=== PATIENT | female | born 1930 | race Caucasian/White ===

== ENCOUNTER 2016-09-29 14:55 | Inpatient (IN) ==
[2016-09-29] MEDS: SODIUM CHLORIDE 0.9% 1,000 ML IV SCH ×2 (16:45→22:48)
[2016-09-29 17:18] LABS: Apearance,Urine CLEAR (Clear); Bilirubin,Urine Negative (Negative); Blood, Urine Negative (Negative); Glucose,Urine (UA) Negative (Negative); Ketones,Urine Negative (Negative); Nitrite,Urine Negative (Negative); Protein,Urine Negative; RBC,Urine <1 /HPF (0-4); Squamous Epithelial Cell,Urine Occasional /HPF (0-10); Urine Color Yellow (Yellow); Urine Specific Gravity 1.008 (1.001-1.035); Urine Urobilinogen < 2.0 EU/DL (0.2-1.0); WBC,Urine 1 /HPF (0-6)
--- NOTE | 2016-09-29 17:23 | Emergency Department Note ---
I, Chacha Guzman, am scribing for, and in the presence of, Gely Hernandez DO 16:56. IDavid Debra, DO, personally performed the services described in this documentation, ascribed by Chacha Guzman in my presence, and it is both accurate and complete 722 . Arrival - Arrival Chief Complaint: Urogenital - Female Stated Complaint: urinating non-stop ED Nursing Triage Note: Pt c/o ?UTI since last Thu with frequent urination and incontinence. Pt was admitted to [facility] last wk for same complaint. Mode of Arrival: Wheelchair Limitations: No Limitations Source: Patient, Family Time Seen by Provider: 09/29/16 16:24 - History of Present Illness HPI Narrative: Pt is a 86 y/o female who came to ED with c/o uncontrollable output that started Thursday. Pt has UTI and hemorrhoids currently. Pt was hospitalized in [place], [place], last week for no output but cathed with great amount of urine expelled. Son reports since then pt has problems with incontinence, especially with standing up or walking. Pt c/o right flank pain and hemorrhoids, therefore lying on left side almost in position. Pt reports she is still drinking lots of fluid, especially gallons of water. Pt's PCP is Dr. Tasha Henry in [place], [place]. Onset (ago): day(s) Consistency: constant Severity: moderate Severity scale (1-10): 5 Quality: aching Allergies/Adverse Reactions: Allergies Allergy/AdvReac Type Severity Reaction Status Date / Time celecoxib [From Celebrex] Allergy Unknown/Unable Verified 03/21/15 11:11 to obtain naproxen [From Aleve] Allergy Unknown/Unable Verified 03/21/15 11:11 to obtain Sulfa (Sulfonamide Allergy ITCHING Verified 03/21/15 11:11 Antibiotics) Home Medications: Home Medications Medication Instructions Recorded Confirmed Type Diltiazem Cd Cap [Cardizem CD] 120 mg PO DAILY 01/27/15 09/29/16 History Lisinopril 20 mg PO DAILY 01/27/15 09/29/16 History Warfarin Sodium 5 mg PO DAILY 01/27/15 09/29/16 History glipiZIDE [Glipizide] 1 tablet PO DAILY 01/27/15 09/29/16 History metFORMIN [Glucophage] 750 tablet PO DAILY 01/27/15 09/29/16 History Allopurinol 100 mg PO BID 09/29/16 09/29/16 History Nitrofurantoin Monohyd/M-Cryst 100 mg PO BID 09/29/16 09/29/16 History [Nitrofurantoin [place]-Mcr 100 mg] hydrOXYzine HCL TAB [Atarax Tab] 25 mg PO BEDTIME 09/29/16 09/29/16 History Review of System - Review of System 12 point system: reviewed and no additional remarkable complaints except as stated - Review of System Constitutional: Absent: fever, weakness Respiratory: Absent: respiratory distress Cardiovascular: Absent: chest pain Gastrointestinal: Absent: abdominal pain, nausea, vomiting, diarrhea Genitourinary female: Present: other (painful hemorrhoids). Absent: dysuria Musculoskeletal: Present: lower back pain (right lower flank pain). Absent: arm pain, leg pain, neck pain Skin: Absent: rash Neurological: Absent: headache, numbness, confusion Medical,Surgical,& Family Hx - Medical History Cardio: History of: Cardiac Dysrhythmia (A. fib), CAD, Hypertension Neurology: History of: Cerebrovascular Accident (x 2 (most recent in 2009)), Vertigo Endocrine: History of: Diabetes Mellitus (NIDDM) Rheumatology: History of;: Gout, Rheumatoid Arthritis Musculoskeletal: History of: Amputation (multiple toes, bilateral feet) - Surgical History Abdominal Surgeries: Surgical HX of: Appendectomy Reproductive Surgeries: Surgical HX of;: Hysterectomy Orthopedic Surgeries: Surgical HX of;: Orthopedic Surgery (multiple toe amputations on bilateral feet s/t diabetes) - Family History Family History: noncontributory - Social History Smoking Status: Never smoker Functional capacity: independent ambulation Exam Vital Signs: Vital Signs Temperature 97.7 F 09/29/16 16:12 Pulse Rate 72 09/29/16 16:12 Respiratory Rate 16 09/29/16 16:12 Blood Pressure 141/68 09/29/16 16:12 O2 Sat by Pulse Oximetry 98 09/29/16 14:56 - General General appearance: alert, in distress (mild) - Head Head exam: Present: atraumatic, normocephalic - Eye Eye exam: Present: PERRL, EOMI - ENT ENT exam: Present: mucous membranes moist. Absent: mucous membranes dry - Neck Neck exam: Present: full ROM. Absent: tenderness - Chest Chest inspection: Present: symmetric chest wall rise. Absent: tenderness - Respiratory Respiratory exam: Present: normal lung sounds bilaterally. Absent: respiratory distress - Cardiovascular Cardiovascular exam: Present: regular rate, normal rhythm, normal heart sounds - Abdominal Exam Abdominal exam: Present: soft, normal bowel sounds. Absent: tenderness - Rectal Exam Rectal exam: Present: deferred (due to pain) - Extremities Exam Extremities exam: Present: full ROM. Absent: tenderness, pedal edema - Back Exam Back exam: Present: full ROM, tenderness (mild right lower flank tenderness) - Neurological Exam Neurological exam: Present: alert, oriented X3, CN II-XII intact - Psychiatric Psychiatric exam: Present: normal affect, normal mood - Skin Skin exam: Present: warm, dry Course Course Narrative: pt to be admitted to Hospitalist service. Results - Labs CBC & BMP: 09/29/16 17:03 09/29/16 17:03 Lab Results: I have reviewed the patients labs Labs: Laboratory Tests 09/29/16 17:03 Urine Appearance Clear Urine pH 5.0 Ur Specific [place] 1.008 Urine Blood Negative Urine Urobilinogen < 2.0 H Urine Leukocytes Negative Urine RBC <1 Urine WBC 1 Ur Squamous Epith Cells Occasional Laboratory Tests 09/29/16 17:03 RBC 3.77 L Hgb 10.9 L Hct 34.0 L Laboratory Tests 09/29/16 17:03 Sodium 137 Potassium 5.1 Chloride 104 Carbon Dioxide 27 Anion Gap 11.1 BUN 15 Creatinine 1.10 H GFR Calculation 44 BUN/Creatinine Ratio 13.00 Glucose 104 Calculated Osmolality 273.8 Calcium 10.2 H Total Bilirubin < 0.39 AST 17 ALT 19 Alkaline Phosphatase 109 Total Protein 8.0 Albumin 3.7 Globulin 4.3 H Albumin/Globulin Ratio 0.8 L - Diagnostic Findings Procedure: CT Abdomen and Pelvis: report reviewed by me (urinary bladder distention. no acute abd path) Disposition Clinical Impression: Urinary incontinence Case discussed with: patient, patient's family Disposition: Still a Patient Condition: Stable Time of Disposition: 19:59
[2016-09-29 18:08] LABS: Basophils % 0.4 % (0.0-0.8); Eosinophils # 0.3 10*3/uL (0.0-0.87); Eosinophils % 3.6 % (0.00-10.9); Hemoglobin 10.9 GM/DL (12.0-16.0); Immature Granulocytes % 0.2 %; Immature Granulocytes Absolute 0.02 #; Lymphocytes # 2.2 10*3/uL (1.4-4.0); Lymphocytes % 27.7 % (21.3-54.2); Mean Corpuscular HGB Conc 32.1 GM/DL (32-36); Mean Corpuscular Hemoglobin 29 PG (27-34); Mean Corpuscular Volume 90.2 FL (87-102); Mean Platelet Volume 11.6 FL (9.6-12.0); Monocytes # 0.6 10*3/uL (0.11-0.8); Neutrophils # 4.8 10*3/uL (1.4-7.4); Neutrophils % 60.1 % (38.7-73.9); Platelet Count 277 T/CUMM (130-400); Red Blood Count 3.77 MC/CUMM (3.8-5.5); Red Cell Distribution Width 15.6 % (9.3-17.3)
[2016-09-29] MEDS ORDERED: ONDANSETRON 4 MG/2 ML VIAL IV STA (18:12)
[2016-09-29] MEDS ORDERED: HYDROmorphone 2 MG/1 ML VIAL IV STA (18:12)
[2016-09-29 18:23] LABS: Alanine Aminotransferase 19 U/L (13-56); Albumin 3.7 G/DL (3.4-5.0); Alkaline Phosphatase 109 U/L (45-117); Aspartate Amino Transferase 17 U/L (0-37); Bilirubin,Total < 0.39 MG/DL (0.2-1.0); Blood Urea Nitrogen 15 MG/DL (7-18); Calcium 10.2 MG/DL (8.5-10.1); Glucose 104 MG/DL (74-106); Osmolality,Calculated 273.8 MOS/KG (273-304); Potassium 5.1 MMOL/L (3.5-5.1); Sodium 137 MMOL/L (136-145)
[2016-09-29] MEDS ORDERED: HYDROmorphone 2 MG/1 ML VIAL ONE (18:27)
[2016-09-29] MEDS ORDERED: ONDANSETRON 4 MG/2 ML VIAL ONE (18:27)
--- NOTE | 2016-09-29 19:38 | Hospitalist History & Physical ---
Assessment and Plan (1) History of CVA (cerebrovascular accident) Status: Acute Assessment and plan: The patient is admitted to the hospital with generalized and increasing weakness and gait disturbance. Will have neurology and urology evaluations. Will recheck MRI scan in the morning. We will ask the urologist to evaluate her incontinence. We will request occupational and physical therapy consultations. Current Visit: No (2) Chronic atrial fibrillation Status: Chronic Current Visit: No (3) Hypertension Status: Chronic Current Visit: No History of Present Illness Chief complaint: Weakness and incontinence History of present illness: Ms. Soto is a 86 year old female patient with history of dementia who lives at home with her son. The patient has had increasing weakness and unstable gait. She has had incontinence. The patient was hospitalized at [facility] for urinary tract infection 2 weeks ago. The patient's symptoms have returned. Laboratory does not show any pyuria. The patient denies shortness of breath or chest discomfort. She does not complain of palpitations. Symptoms are moderate, continuous, and worsening. The patient is now admitted hospital for further diagnostic testing. I discussed CODE STATUS with the patient and she wishes to be full code at this time. Home Medications Medication Instructions Recorded Confirmed Type Diltiazem Cd Cap [Cardizem CD] 120 mg PO DAILY 01/27/15 09/29/16 History Lisinopril 20 mg PO DAILY 01/27/15 09/29/16 History Warfarin Sodium 5 mg PO DAILY 01/27/15 09/29/16 History glipiZIDE [Glipizide] 1 tablet PO DAILY 01/27/15 09/29/16 History metFORMIN [Glucophage] 750 tablet PO DAILY 01/27/15 09/29/16 History Allopurinol 100 mg PO BID 09/29/16 09/29/16 History Nitrofurantoin Monohyd/M-Cryst 100 mg PO BID 09/29/16 09/29/16 History [Nitrofurantoin [place]-Mcr 100 mg] hydrOXYzine HCL TAB [Atarax Tab] 25 mg PO BEDTIME 09/29/16 09/29/16 History Allergies Allergy/AdvReac Type Severity Reaction Status Date / Time celecoxib [From Celebrex] Allergy Unknown/Unable Verified 03/21/15 11:11 to obtain naproxen [From Aleve] Allergy Unknown/Unable Verified 03/21/15 11:11 to obtain Sulfa (Sulfonamide Allergy ITCHING Verified 03/21/15 11:11 Antibiotics) Medical,Surgical,& Family Hx - Medical History Cardio: History of: Cardiac Dysrhythmia (A. fib), CAD, Hypertension Neurology: History of: Cerebrovascular Accident (x 2 (most recent in 2009)), Vertigo Endocrine: History of: Diabetes Mellitus (NIDDM) Rheumatology: History of;: Gout, Rheumatoid Arthritis Musculoskeletal: History of: Amputation (multiple toes, bilateral feet) - Surgical History Abdominal Surgeries: Surgical HX of: Appendectomy Reproductive Surgeries: Surgical HX of;: Hysterectomy Orthopedic Surgeries: Surgical HX of;: Orthopedic Surgery (multiple toe amputations on bilateral feet s/t diabetes) - Family History Family History: Reports;: Family Hypertension - Social History Smoking Status: Never smoker Time spent discussing smoking cessation with patient: 3 to 10 minutes (4 minutes ) Type of Drug Use: None Marital Status: Lives With:: Children Functional capacity: bed bound 12 point system: reviewed and no additional remarkable complaints except as stated Exam - Constitutional Vitals: Period Temp Pulse Resp BP Sys/Alamo Pulse Ox Last 24 Hr 97.7 F-97.7 F 72-72 16-16 141-141/68-68 98 Exam: Constitutional System: Mild distress. No tremulousness. Frail elderly lady. Anxious affect Head: Normocephalic, atraumatic. Ears, Nose and Throat System: No evidence of Otitis or Mastoiditis. No epistaxis or discharge Eyes System: Pupils equal, round, and reactive. Extraocular muscles intact. Neck: Supple, without adenopathy, No jugular venous distention. No thyromegaly , neck mass, or prior surgery apparent. Respiratory System: Chest clear to auscultation. Cardiovascular System: Heart with regular rate and rhythm. No murmur. GI System: Abdomen soft, mildly and diffusely tender. Normo active bowel sounds present. Musculoskeletal System: limbs with no pedal edema. Full distal pulses. Neurological System: No discernable sensory deficit. No aphasia Psychiatric System: Conversation is consistent with short-term memory loss Results - Labs CBC & BMP: 09/29/16 17:03 09/29/16 17:03 Lab Results: I have reviewed the past 24 hour labs
--- NOTE | 2016-09-29 19:38 | CT Report ---
Referring physician: Gely Hernandez DO EXAM: CT abdomen and pelvis without contrast DATE: 09/29/2016 COMPARISON: None REASON: Generalized abdominal pain TECHNIQUE: Axial images of the abdomen and pelvis were obtained without the use of contrast. Coronal and sagittal reformatted images were also provided. Total DLP is 448.90 mGy*cm. FINDINGS: Chronic scarring/atelectasis/minimal infiltration at the lung bases especially in the left lower lobe. Cardiomegaly with coronary artery calcifications. The liver and spleen are normal in size and contain multiple calcified granulomata. No dilated ducts or calcified gallstones. The pancreas and adrenal glands have an unremarkable appearance. Cortical scarring in the kidneys with minimal bilateral hydronephrosis. The distal ureters are less dilated with no definite renal or ureteral calculi. However there are multiple phleboliths adjacent to the nondilated distal ureters. The urinary bladder is distended to the level of L4. Calcification in the wall of the nondilated abdominal aorta with no adjacent adenopathy. Small hiatal hernia with no dilatation of the small bowel. Diverticulosis of the colon with increased fecal material. No evidence of diverticulitis, free air, or free fluid. Suboptimal demonstration of the appendix. Prior hysterectomy with evidence of pelvic relaxation. 3.6 mm anterolisthesis of L4 relationship to L5. Degenerative changes with chronic appearing Schmorl's nodes and osteopenia. IMPRESSION: Significant distention of the urinary bladder to the level of L4. There is associated minimal hydronephrosis which may be related this finding. It is difficult to exclude an element of UPJ obstruction, etc. Cortical scarring in the kidneys. No obvious renal or ureteral calculi are identified. Small hiatal hernia with diverticulosis of the colon and increased fecal material. Limited evaluation of the appendix on these noncontrast scans. Prior hysterectomy. Evidence of old healed granulomatous disease with arterial calcifications and minimal atelectasis/infiltration in the left lower lobe. Cardiomegaly with coronary artery calcifications. Grade 1 spondylolisthesis at L4-L5 with degenerative changes and osteopenia. The CT exam was performed using one or more of the following dose reduction techniques: Automated exposure control and adjustment of the mA and/or kV according to patient size. PROCEDURE INTERPRETED AT [facility] DEPARTMENT OF RADIOLOGY Final Report Signed by: Dr. Ana Aguilar
[2016-09-29] MEDS ORDERED: GLUCAGON 1 MG VIAL IM PRN (20:50)
[2016-09-29] MEDS ORDERED: ONDANSETRON 4 MG/2 ML VIAL IV PRN (20:50)
[2016-09-29] MEDS ORDERED: DEXTROSE 50% 25 GM/50 ML VIAL IV PRN (20:50)
[2016-09-29 22:00] LABS: INR 3.4
[2016-09-29 22:03] LABS: PT Patient Result 39.3 SECS
[2016-09-29] MEDS: hydrOXYzine HCL 25 MG TABLET PO SCH (22:48)
[2016-09-29] MEDS: ALLOPURINOL 100 MG TABLET PO SCH (22:48)
[2016-09-29] MEDS: NITROFURANTOIN MACRO/MONO 100 MG CAPSULE PO SCH (22:48)
[2016-09-30] MEDS: ACETAMINOPHEN 325 MG TABLET PO PRN ×3 (03:06→20:31)
[2016-09-30 05:20] LABS: Basophils % 0.4 % (0.0-0.8); Eosinophils # 0.3 10*3/uL (0.0-0.87); Eosinophils % 3.8 % (0.00-10.9); Hematocrit 30.3 VOL% (35.7-47.0); Hemoglobin 9.6 GM/DL (12.0-16.0); Immature Granulocytes % 0.3 %; Immature Granulocytes Absolute 0.02 #; Lymphocytes # 1.2 10*3/uL (1.4-4.0); Lymphocytes % 18.2 % (21.3-54.2); Mean Corpuscular HGB Conc 31.7 GM/DL (32-36); Mean Corpuscular Hemoglobin 29 PG (27-34); Mean Corpuscular Volume 89.9 FL (87-102); Mean Platelet Volume 10.9 FL (9.6-12.0); Monocytes # 0.6 10*3/uL (0.11-0.8); Monocytes % 8.7 % (1.7-12.7); Neutrophils # 4.7 10*3/uL (1.4-7.4); Neutrophils % 68.6 % (38.7-73.9); Platelet Count 262 T/CUMM (130-400); Red Blood Count 3.37 MC/CUMM (3.8-5.5); Red Cell Distribution Width 15.6 % (9.3-17.3); White Blood Count 6.8 T/CUMM (4-12)
[2016-09-30 06:01] LABS: Calcium 9.6 MG/DL (8.5-10.1); Magnesium 1.9 MG/DL (1.8-2.4); Osmolality,Calculated 281.3 MOS/KG (273-304); Potassium 5.3 MMOL/L (3.5-5.1)
[2016-09-30 06:02] LABS: Troponin I Only 0.074 NG/ML (0.00-0.045)
--- NOTE | 2016-09-30 07:47 | Urology Consultation ---
History of Present Illness - Data of Consult Consult date: 09/30/16 - Consult Narrative History of present illness: Ms. Soto is a 86 year old female This 86-year-old white female diabetic is seen in consultation because a history of urinary incontinence. The patient is a poor historian but apparently she was hospitalized in [place] recently with a history of not being able to void and having a large output. Her primary complaint now is incontinence when she stands up but she feels no urge to void. She denies any past history of any serious urological problems and her evaluation thus far includes a finding of a normal urinalysis normal renal function and a CT scan shows bladder distention with mild hydronephrosis probably secondary to bladder outlet obstruction. She denies any urological symptoms with the lower extremity. I think that she has a neurogenic bladder with distention and no urge to void with overflow incontinence on the recommended we start intermittent catheterization CC: Beronica Villafuerte MD - Home Medications and Allergies Home Medications: Home Medications Medication Instructions Recorded Confirmed Type Diltiazem Cd Cap [Cardizem CD] 120 mg PO DAILY 01/27/15 09/29/16 History Lisinopril 20 mg PO DAILY 01/27/15 09/29/16 History Warfarin Sodium 5 mg PO DAILY 01/27/15 09/29/16 History glipiZIDE [Glipizide] 1 tablet PO DAILY 01/27/15 09/29/16 History metFORMIN [Glucophage] 750 tablet PO DAILY 01/27/15 09/29/16 History Allopurinol 100 mg PO BID 09/29/16 09/29/16 History Nitrofurantoin Monohyd/M-Cryst 100 mg PO BID 09/29/16 09/29/16 History [Nitrofurantoin [place]-Mcr 100 mg] hydrOXYzine HCL TAB [Atarax Tab] 25 mg PO BEDTIME 09/29/16 09/29/16 History Allergies/Adverse Reactions: Allergies Allergy/AdvReac Type Severity Reaction Status Date / Time celecoxib [From Celebrex] Allergy Unknown/Unable Verified 03/21/15 11:11 to obtain naproxen [From Aleve] Allergy Unknown/Unable Verified 03/21/15 11:11 to obtain Sulfa (Sulfonamide Allergy ITCHING Verified 03/21/15 11:11 Antibiotics) Exam - Constitutional Vitals: Period Temp Pulse Resp BP Sys/[place] Pulse Ox Last 24 Hr 97.7 F-98.4 F 70-91 16-20 135-141/56-93 95-98 Results - Labs CBC & BMP: 09/30/16 05:03 09/30/16 05:03
[2016-09-30] MEDS ORDERED: SODIUM PHOSPHATE ENEMA 133 ML BOTTLE RECTAL PRN (09:18)
[2016-09-30] MEDS ORDERED: LACTULOSE 20 GM/30 ML UDCUP PO PRN (09:18)
[2016-09-30] MEDS: glipiZIDE 10 MG TABLET PO SCH (09:36)
[2016-09-30] MEDS: DILTIAZEM CD 120 MG CAPSULE PO SCH (09:37)
[2016-09-30] MEDS: metFORMIN 500 MG TABLET PO SCH (09:37)
[2016-09-30] MEDS: ALLOPURINOL 100 MG TABLET PO SCH ×2 (09:38→20:31)
[2016-09-30] MEDS: NITROFURANTOIN MACRO/MONO 100 MG CAPSULE PO SCH ×2 (09:38→20:31)
[2016-09-30] MEDS: LISINOPRIL 20 MG TABLET PO SCH (09:39)
[2016-09-30] MEDS: SODIUM CHLORIDE 0.9% 1,000 ML IV SCH ×2 (09:39→20:03)
[2016-09-30] MEDS: PANTOPRAZOLE 40 MG TABLET PO SCH (09:39)
--- NOTE | 2016-09-30 10:15 | XRay Report ---
XR KUB Indication: Generalized abdominal pain Comparison: CT abdomen pelvis dated September 29, 2016 Technique: Frontal views of the abdomen Findings: Nonspecific nonobstructive bowel gas pattern. Granulomatous calcifications of the liver and spleen diffuse osteopenia. Mild S-shaped curvature of the spine with degenerative change. IMPRESSION: No acute abnormality demonstrated. PROCEDURE INTERPRETED AT [facility] DEPARTMENT OF RADIOLOGY Final Report Signed by: Dr David Hernandez
[2016-09-30] MEDS: POLYETHYLENE GLYCOL POWDER 17 GM PACK PO SCH (10:39)
--- NOTE | 2016-09-30 11:44 | Hospitalist Progress Note ---
Assessment and Plan (1) Chronic atrial fibrillation Status: Chronic Assessment and plan: Takes coumadin, holding due to elevated INR Current Visit: No (2) Type 2 diabetes mellitus Status: Acute Assessment and plan: Home meds have been discontinued Current Visit: No (3) Hypertension Status: Chronic Assessment and plan: Home meds Current Visit: No (4) History of CVA (cerebrovascular accident) Status: Acute Current Visit: No (5) Urinary incontinence Status: Acute Assessment and plan: Urology consulted Recommend in and out caths, believe is due to neurogenic bladder Current Visit: Yes (6) Constipation Status: Acute Current Visit: Yes (7) Supratherapeutic INR Status: Acute Current Visit: Yes (8) Gait disturbance Status: Acute Assessment and plan: Neurology consulted MRI ordered PT/OT Current Visit: Yes Hospitalist: Subjective Interval history: No acute events overnight. Patient reports that she has not had a bowel movement in a week. Denies abdominal pain today. Exam - Constitutional Vitals: Period Temp Pulse Resp BP Sys/[place] Pulse Ox Last 24 Hr 97.4 F-98.4 F 70-91 16-20 135-150/56-93 92-98 General appearance: normal weight - Head Head exam: Present: normocephalic, atraumatic - Eye Eye exam: Present: EOMI Pupils: Present: MEHRAN - ENT ENT exam: Present: normal exam - Neck Neck exam: Present: normal inspection - Respiratory Respiratory exam: Present: clear to auscultation bilaterally. Absent: rhonchi, wheezes - Cardiovascular Cardiovascular exam: Present: regular rate and rhythm - GI/Abdominal GI/Abdominal exam: Present: normal bowel sounds, soft. Absent: tenderness, rebound - Extremities Exam Extremities exam: Present: normal inspection - Back Exam Back exam: Present: normal inspection - Neurological Exam Neurological exam: Present: alert, oriented X3 - Psychiatric Psychiatric exam: Present: normal affect, normal mood - Skin Skin exam: Present: warm, intact Results - Labs CBC & BMP: 09/30/16 05:03 09/30/16 05:03 Quality Measures - VTE Contraindication to Pharmacological VTE Prophylaxis: Already on Theraputic Agent , No Prophylaxis Needed
--- NOTE | 2016-09-30 14:07 | Neurology Consult Note ---
History of Present Illness History of present illness: Ms. Soto is a 86 year old right-handed white lady with history of questionable dementia but apparently she is not on any medications for dementia who lives at home with her son. The patient has had increasing weakness and unstable gait. She has had some incontinence. The patient was hospitalized at [facility] for urinary tract infection 2 weeks ago. The patient' s symptoms have returned. Laboratory does not show any signs of UTI. The patient denies shortness of breath or chest discomfort. She does not complain of palpitations. She just feels weak all over. The patient is now admitted hospital for further diagnostic testing. Home Medications Medication Instructions Recorded Confirmed Type Diltiazem Cd Cap [Cardizem CD] 120 mg PO DAILY 01/27/15 09/29/16 History Lisinopril 20 mg PO DAILY 01/27/15 09/29/16 History Warfarin Sodium 5 mg PO DAILY 01/27/15 09/29/16 History glipiZIDE [Glipizide] 1 tablet PO DAILY 01/27/15 09/29/16 History metFORMIN [Glucophage] 750 tablet PO DAILY 01/27/15 09/29/16 History Allopurinol 100 mg PO BID 09/29/16 09/29/16 History Nitrofurantoin Monohyd/M-Cryst 100 mg PO BID 09/29/16 09/29/16 History [Nitrofurantoin [place]-Mcr 100 mg] hydrOXYzine HCL TAB [Atarax Tab] 25 mg PO BEDTIME 09/29/16 09/29/16 History Allergies Allergy/AdvReac Type Severity Reaction Status Date / Time celecoxib [From Celebrex] Allergy Unknown/Unable Verified 03/21/15 11:11 to obtain naproxen [From Aleve] Allergy Unknown/Unable Verified 03/21/15 11:11 to obtain Sulfa (Sulfonamide Allergy ITCHING Verified 03/21/15 11:11 Antibiotics) 12 point system: reviewed and no additional remarkable complaints except as stated Medical,Surgical,& Family Hx - Medical History Cardio: History of: Cardiac Dysrhythmia (A. fib), CAD, Hypertension Psychological: No history of: Anxiety Disorders, ADHD, Behavior Problems, Bipolar Disorder, Depression, Previous Suicide Attempt, Psychiatric/Substance Abuse Tx, Schizophrenia, Violent Behavior, Psychiatric Problems Neurology: History of: Cerebrovascular Accident (x 2 (most recent in 2009)), Vertigo Endocrine: History of: Diabetes Mellitus (NIDDM) Rheumatology: History of;: Gout, Rheumatoid Arthritis Musculoskeletal: History of: Amputation (multiple toes, bilateral feet) - Surgical History Abdominal Surgeries: Surgical HX of: Appendectomy Reproductive Surgeries: Surgical HX of;: Hysterectomy Orthopedic Surgeries: Surgical HX of;: Orthopedic Surgery (multiple toe amputations on bilateral feet s/t diabetes) - Family History Family History: Reports;: Family Hypertension - Social History Smoking Status: Never smoker Frequency of Alcohol Use: None Type of Drug Use: None Exam - Constitutional Vitals: Period Temp Pulse Resp BP Sys/[place] Pulse Ox Last 24 Hr 97.4 F-98.4 F 70-91 16-20 135-150/56-93 92-98 Exam: GENERAL: Patient is in no acute distress. NECK: Neck is supple. There is no JVD. No carotid bruits present. No thyroid masses. CVS: First and second heart sounds are normal. There is no S3 present. Regular rate and rhythm. RESPIRATORY: Lungs are clear to auscultation without any rales or rhonchi. ABDOMEN: Soft and non-tender. Bowel sounds are present. There is no hepatosplenomegaly. EXT: There is no palpable edema. Peripheral pulses are present. Skin: No rashes Central Nervous system: General: Alert, awake and Oriented x 3 Speech: Fluent Comprehension: Intact and normal Facial expressions: Normal Cranial Nerves: CN1/Olfactory: Normal CN II/ Optic: Normal, Visual Nayak unreliable CN III, and : MEHRAN & EOMI CN V: Normal & intact CN VII: face is symmetric CNVIII: Normal CN XI/X/XI/XII: Intact and Normal Motor: Bulk and Tone is normal. Strength in the right 2-3/5 Strength in the left 2-3/5 Sensory: Grossly intact for all the modalities of PP, LT and temp sense Reflexes: 1+ and symmetrical Cerebellar function: Slow finger to nose and heel to hermosillo testing. Toes: Equivocal Gait: Not tested at this time Results - Labs CBC & BMP: 09/30/16 05:03 09/30/16 05:03 Assessment and Plan (1) Debility Status: Acute Assessment and plan: Consult TMR Current Visit: Yes (2) Dementia Status: Acute Assessment and plan: Check Mini-Mental exam Check B12 folate TSH We will schedule outpatient neuropsych testing Thank you for the consult Current Visit: Yes
[2016-09-30 14:50] LABS: Free T4 (Free Thyroxine) 1.33 NG/DL (0.76-1.46); Thyroid Stimulating Hormone 0.592 uIU/ml (0.358-3.74)
[2016-09-30] MEDS ORDERED: GLUCAGON 1 MG VIAL IM PRN (15:28)
[2016-09-30] MEDS ORDERED: DEXTROSE 50% 25 GM/50 ML VIAL IV PRN (15:28)
[2016-09-30] MEDS: INSULIN LISPRO 100 UNIT/ML SUBCUT SCH ×2 (17:32→21:15)
[2016-09-30] MEDS: DESITIN 4OZ/NYSTATIN 15 GRAM MIXTURE PASTE TOP SCH ×2 (20:04→20:30)
[2016-09-30] MEDS: WARFARIN 5 MG TABLET PO SCH (20:04)
[2016-09-30] MEDS: hydrOXYzine HCL 25 MG TABLET PO SCH (20:31)
[2016-09-30 20:56] LABS: Folate 22.6 NG/ML (5.4-24.0)
[2016-10-01] MEDS: SODIUM CHLORIDE 0.9% 1,000 ML IV SCH ×3 (05:07→21:19)
[2016-10-01 05:11] LABS: Basophils % 0.5 % (0.0-0.8); Eosinophils # 0.2 10*3/uL (0.0-0.87); Eosinophils % 2.3 % (0.00-10.9); Hematocrit 30.9 VOL% (35.7-47.0); Hemoglobin 9.9 GM/DL (12.0-16.0); Immature Granulocytes % 0.4 %; Immature Granulocytes Absolute 0.03 #; Lymphocytes # 1.4 10*3/uL (1.4-4.0); Lymphocytes % 18.8 % (21.3-54.2); Mean Corpuscular Hemoglobin 29 PG (27-34); Mean Corpuscular Volume 89.3 FL (87-102); Mean Platelet Volume 10.7 FL (9.6-12.0); Monocytes # 0.5 10*3/uL (0.11-0.8); Monocytes % 6.3 % (1.7-12.7); Neutrophils # 5.2 10*3/uL (1.4-7.4); Neutrophils % 71.7 % (38.7-73.9); Platelet Count 246 T/CUMM (130-400); Red Blood Count 3.46 MC/CUMM (3.8-5.5); Red Cell Distribution Width 15.6 % (9.3-17.3); White Blood Count 7.3 T/CUMM (4-12)
[2016-10-01 05:39] LABS: PT Patient Result 33.5 SECS
[2016-10-01 05:48] LABS: Magnesium 1.7 MG/DL (1.8-2.4); Osmolality,Calculated 285.8 MOS/KG (273-304); Potassium 4.4 MMOL/L (3.5-5.1)
--- NOTE | 2016-10-01 07:44 | Urology Progress Note ---
Urology - PN: Subj Interval history: The patient is voiding a small amount and still has large residual urine. She had 1300 cc in her bladder when initially drained. I am going to cystoscope the patient today and continue intermittent catheterization and the patient is going to need to learn to do self-catheterization or go home with a Perez Exam - Constitutional Vitals: Period Temp Pulse Resp BP Sys/[place]amo Pulse Ox Last 24 Hr 97.4 F-98.3 F 82-91 16-18 130-151/54-91 92-94 Results - Labs CBC & BMP: 10/01/16 05:01 10/01/16 05:01
[2016-10-01] MEDS: INSULIN LISPRO 100 UNIT/ML SUBCUT SCH ×4 (09:11→21:15)
[2016-10-01] MEDS: POLYETHYLENE GLYCOL POWDER 17 GM PACK PO SCH (10:22)
[2016-10-01] MEDS: metFORMIN 500 MG TABLET PO SCH (10:22)
[2016-10-01] MEDS: PANTOPRAZOLE 40 MG TABLET PO SCH (10:22)
[2016-10-01] MEDS: LISINOPRIL 20 MG TABLET PO SCH (10:23)
[2016-10-01] MEDS: NITROFURANTOIN MACRO/MONO 100 MG CAPSULE PO SCH ×2 (10:23→21:09)
[2016-10-01] MEDS: ALLOPURINOL 100 MG TABLET PO SCH ×2 (10:23→21:21)
[2016-10-01] MEDS: DILTIAZEM CD 120 MG CAPSULE PO SCH (10:23)
[2016-10-01] MEDS: glipiZIDE 10 MG TABLET PO SCH (10:23)
[2016-10-01] MEDS: CYANOCOBALAMIN 1000 MCG/1 ML VIAL SUBCUT SCH (10:23)
[2016-10-01] MEDS: DESITIN 4OZ/NYSTATIN 15 GRAM MIXTURE PASTE TOP SCH ×2 (10:24→21:10)
--- NOTE | 2016-10-01 13:29 | Hospitalist Progress Note ---
Assessment and Plan (1) Chronic atrial fibrillation Status: Chronic Assessment and plan: Takes coumadin, holding due to elevated INR Will restart tomorrow Current Visit: No (2) Type 2 diabetes mellitus Status: Acute Assessment and plan: Home meds have been continued Current Visit: No (3) Hypertension Status: Chronic Assessment and plan: Home meds Current Visit: No (4) History of CVA (cerebrovascular accident) Status: Acute Current Visit: No (5) Urinary incontinence Status: Acute Assessment and plan: Urology consulted Recommend in and out caths, believe is due to neurogenic bladder Cystoscopy today Current Visit: Yes (6) Constipation Status: Acute Current Visit: Yes (7) Supratherapeutic INR Status: Acute Current Visit: Yes (8) Gait disturbance Status: Acute Assessment and plan: Neurology consulted MRI without acute process PT/OT B12 low, replacing Recommend TMR placement Current Visit: Yes Hospitalist: Subjective Interval history: No acute events overnight. Complaining of decreased bladder control. Plan is for cytoscope today. Possible discharge to swing bed tomorrow. Exam - Constitutional Vitals: Period Temp Pulse Resp BP Sys/[place] Pulse Ox Last 24 Hr 97.6 F-98.7 F 82-101 16-18 130-154/54-91 92-98 General appearance: normal weight - Head Head exam: Present: normocephalic, atraumatic - Eye Eye exam: Present: EOMI Pupils: Present: MEHRAN - ENT ENT exam: Present: normal exam - Neck Neck exam: Present: normal inspection - Respiratory Respiratory exam: Present: clear to auscultation bilaterally. Absent: wheezes - Cardiovascular Cardiovascular exam: Present: regular rate and rhythm - GI/Abdominal GI/Abdominal exam: Present: normal bowel sounds, soft. Absent: tenderness, rebound - Extremities Exam Extremities exam: Present: normal inspection - Back Exam Back exam: Present: normal inspection - Neurological Exam Neurological exam: Present: alert, oriented X3 - Psychiatric Psychiatric exam: Present: normal affect, normal mood - Skin Skin exam: Present: warm, intact Results - Labs CBC & BMP: 10/01/16 05:01 10/01/16 05:01 Quality Measures - VTE Contraindication to Pharmacological VTE Prophylaxis: Already on Theraputic Agent , No Prophylaxis Needed
[2016-10-01] MEDS ORDERED: LIDOCAINE 2% TOP JELLY 20 ML VIAL INTRAURETH ONE (13:49)
--- NOTE | 2016-10-01 14:50 | Operative Note ---
Date of procedure: 10/01/16 Pre-op diagnosis: Neurogenic bladder Post-op diagnosis: same Procedure: Under no premedication the patient was taken to the operating room placed on the table in supine position. She was prepped and draped in usual manner local anesthesia using Xylocaine jelly was instilled into the urethra. A timeout procedure was done. The flexible cystoscope was introduced into the bladder and the urethra showed no stenosis or diverticulum. The bladder was examined in routine fashion. The bladder wall was smooth there was some hemorrhagic areas on the posterior wall compatible with catheter trauma. There were no tumors or foreign bodies. Scope was removed patient tolerated procedure well and returned to her room in good condition. Anesthesia: local Surgeon / Physician: Wong Guerrero Estimated blood loss: none Specimens: none sent Condition: stable Disposition: floor Results - Labs CBC & BMP: 10/01/16 05:01 10/01/16 05:01 Discharge Plan - Discharge Medications No Action Warfarin Sodium 5 mg PO DAILY Lisinopril 20 mg PO DAILY glipiZIDE [Glipizide] 1 tablet PO DAILY metFORMIN [Glucophage] 750 tablet PO DAILY Diltiazem Cd Cap [Cardizem CD] 120 mg PO DAILY hydrOXYzine HCL TAB [Atarax Tab] 25 mg PO BEDTIME Nitrofurantoin Monohyd/M-Cryst [Nitrofurantoin [place]-Mcr 100 mg] 100 mg PO BID Allopurinol 100 mg PO BID - Follow Up or Referral - Forms/Instructions
--- NOTE | 2016-10-01 14:50 | Event Note ---
Patient gone for urology procedure
[2016-10-01] MEDS: ACETAMINOPHEN 325 MG TABLET PO PRN ×2 (16:02→21:09)
[2016-10-01] MEDS: WARFARIN 5 MG TABLET PO SCH (17:38)
[2016-10-01] MEDS: hydrOXYzine HCL 25 MG TABLET PO SCH (21:09)
[2016-10-01] MEDS ORDERED: ACETAMINOPHEN 325 MG TABLET PO PRN (23:05)
[2016-10-02 05:52] LABS: INR 2.9
[2016-10-02 05:53] LABS: PT Patient Result 32.8 SECS
[2016-10-02] MEDS: ACETAMINOPHEN 325 MG TABLET PO PRN (06:14)
--- NOTE | 2016-10-02 07:36 | Urology Progress Note ---
Urology - PN: Subj Interval history: The patient had a negative cystoscopic exam. The urethral meatus is not difficult to identify and the patient needs to be able to do self- catheterization so she can do this post discharge Exam - Constitutional Vitals: Period Temp Pulse Resp BP Sys/[place] Pulse Ox Last 24 Hr 97.6 F-98.7 F 55-101 16-20 150-166/73-95 94-98 Results - Labs CBC & BMP: 10/01/16 05:01 10/01/16 05:01
[2016-10-02] MEDS: SODIUM CHLORIDE 0.9% 1,000 ML IV SCH ×2 (07:57→11:28)
[2016-10-02] MEDS: INSULIN LISPRO 100 UNIT/ML SUBCUT SCH ×2 (08:24→11:42)
--- NOTE | 2016-10-02 08:26 | Neurology Progress Note ---
Neurology - PN : Subjective Interval history: Patient seems to be doing better. No new problems reported. B12 is very low and she is on replacement. MMSE score is 26/30 Exam (Progress Note) - Constitutional Vitals: Period Temp Pulse Resp BP Sys/[place] Pulse Ox Last 24 Hr 97.6 F-98.7 F 55-101 16-20 150-166/73-95 94-98 Exam: GENERAL: Patient is in no acute distress. NECK: Neck is supple. There is no JVD. No carotid bruits present. No thyroid masses. CVS: First and second heart sounds are normal. There is no S3 present. Regular rate and rhythm. RESPIRATORY: Lungs are clear to auscultation without any rales or rhonchi. ABDOMEN: Soft and non-tender. Bowel sounds are present. There is no hepatosplenomegaly. EXT: There is no palpable edema. Peripheral pulses are present. Skin: No rashes Central Nervous system: General: Alert, awake and Oriented x 3. MMSE 26/30 Speech: Fluent Comprehension: Intact and normal Facial expressions: Normal Cranial Nerves: CN1/Olfactory: Normal CN II/ Optic: Normal, Visual Nayak unreliable CN III, and : MEHRAN & EOMI CN V: Normal & intact CN VII: face is symmetric CNVIII: Normal CN XI/X/XI/XII: Intact and Normal Motor: Bulk and Tone is normal. Strength in the right 2-3/5 Strength in the left 2-3/5 Sensory: Grossly intact for all the modalities of PP, LT and temp sense Reflexes: 1+ and symmetrical Cerebellar function: Slow finger to nose and heel to hermosillo testing. Toes: Equivocal Gait: Not tested at this time Results - Labs CBC & BMP: 10/01/16 05:01 10/01/16 05:01 Assessment and Plan (1) Debility Status: Acute Assessment and plan: Continue present management Current Visit: Yes (2) Dementia Status: Acute Assessment and plan: Hold off to any treatment. Continue B12 replacement Follow-up in 4 week Current Visit: Yes Quality Measures - VTE Contraindication to Pharmacological VTE Prophylaxis: Already on Theraputic Agent , No Prophylaxis Needed Specialty Discharge - Follow Up or Referrals Follow up with: Luis Jordan MD [Physician] - 1 Month
[2016-10-02] MEDS: metFORMIN 500 MG TABLET PO SCH (08:30)
[2016-10-02] MEDS: DESITIN 4OZ/NYSTATIN 15 GRAM MIXTURE PASTE TOP SCH (08:31)
[2016-10-02] MEDS: LISINOPRIL 20 MG TABLET PO SCH (08:31)
[2016-10-02] MEDS: NITROFURANTOIN MACRO/MONO 100 MG CAPSULE PO SCH (08:31)
[2016-10-02] MEDS: DILTIAZEM CD 120 MG CAPSULE PO SCH (08:31)
[2016-10-02] MEDS: CYANOCOBALAMIN 1000 MCG/1 ML VIAL SUBCUT SCH (08:31)
[2016-10-02] MEDS: PANTOPRAZOLE 40 MG TABLET PO SCH (08:31)
[2016-10-02] MEDS: glipiZIDE 10 MG TABLET PO SCH (08:31)
[2016-10-02] MEDS: ALLOPURINOL 100 MG TABLET PO SCH (08:31)
[2016-10-02] MEDS: POLYETHYLENE GLYCOL POWDER 17 GM PACK PO SCH (08:32)
[2016-10-02 08:34] VITALS: BP 157/92
[2016-10-02] MEDS ORDERED: oxyCODONE IR 5 MG TABLET PO PRN (09:25)
[2016-10-02] MEDS ORDERED: oxyCODONE/ACETAMINOPHEN 5-325 MG TABLET ONE (09:39)
--- NOTE | 2016-10-02 10:21 | Discharge Summary ---
Hospital Course - Hospital Course Hospital Course: Ms. Soto is a 86 year old female patient with history of dementia who lived at home with her son. The patient had increasing weakness and unstable gait. She had incontinence. The patient was hospitalized at [facility] for urinary tract infection 2 weeks ago. The patient's symptoms have returned. Laboratory does not show any pyuria. She was admitted to the hospitalist service for generalized weakness, gait disturbance and urinary incontinence. Neurology was consulted. MRI did not show an acute process. B12 was found to be low, now being replaced. Urology was consulted, believe that urinary incontinence is due to neurogenic bladder. She underwent cytoscopic exam, which revealed no abnormalities. She will need to start self-catherization at discharge. Her INR was elevated on admission, coumadin was held, restarted at lower dose. She has now reached maximal benefit of inpatient stay and will be discharged to [facility] for rehab. - Time spent with patient Time with patient DS: Less than 30 minutes Diagnosis - Discharge Diagnosis (1) Chronic atrial fibrillation Status: Chronic (2) Type 2 diabetes mellitus Status: Acute (3) Hypertension Status: Chronic (4) History of CVA (cerebrovascular accident) Status: Chronic (5) Urinary incontinence Status: Chronic (6) Constipation Status: Resolved (7) Supratherapeutic INR Status: Resolved (8) Gait disturbance Status: Acute Specialty Discharge - Follow Up or Referrals Follow up with: Luis Jordan MD [Physician] - 1 Month Discharge Plan - Discharge Data Disposition: Swing Bed, [facility], [facility] Condition at Discharge: Stable Discharge Diet: advance to your usual diet Activity: as per physical therapy Hygiene: no restrictions Weight Bearing at Discharge: weight bear as tolerated Contact your physician if you experience:: fever over 101, Shortness of breath - Discharge Medications New Warfarin [Coumadin] 3 mg PO DAILY@1800 #30 tablet oxyCODONE IR [Roxicodone] 5 mg PO Q4H PRN #30 tablet PRN Reason: Pain Severe (8-10) Cyanocobalamin Inj [Vitamin B12 Inj] 1,000 mcg SUBCUT DAILY #9 vial Continue Lisinopril 20 mg PO DAILY glipiZIDE [Glipizide] 1 tablet PO DAILY metFORMIN [Glucophage] 750 tablet PO DAILY Diltiazem Cd Cap [Cardizem CD] 120 mg PO DAILY hydrOXYzine HCL TAB [Atarax Tab] 25 mg PO BEDTIME Nitrofurantoin Monohyd/M-Cryst [Nitrofurantoin [place]-Mcr 100 mg] 100 mg PO BID Allopurinol 100 mg PO BID Discontinued Warfarin Sodium 5 mg PO DAILY - Follow Up or Referral Follow Up: Luis Jordan MD [Physician] - 1 Month - Forms/Instructions Exam - Constitutional Vitals: Period Temp Pulse Resp BP Sys/[place] Pulse Ox Last 24 Hr 97.6 F-98.7 F 55-108 16-20 150-166/73-95 94-98 General appearance: normal weight - Head Head exam: Present: normocephalic, atraumatic - Eye Eye exam: Present: EOMI Pupils: Present: MEHRAN - ENT ENT exam: Present: normal exam - Neck Neck exam: Present: normal inspection - Respiratory Respiratory exam: Present: clear to auscultation bilaterally. Absent: rhonchi, wheezes - Cardiovascular Cardiovascular exam: Present: regular rate and rhythm - GI/Abdominal GI/Abdominal exam: Present: normal bowel sounds, soft. Absent: tenderness, rebound - Extremities Exam Extremities exam: Present: normal inspection - Back Exam Back exam: Present: normal inspection - Neurological Exam Neurological exam: Present: alert, oriented X3 - Psychiatric Psychiatric exam: Present: normal affect, normal mood - Skin Skin exam: Present: warm, intact Discharge Results Labs on day of discharge: Labs from last 24 hours 10/02/16 10/02/16 10/01/16 07:17 04:52 21:15 INR 2.9 PT Patient/Control Mix 32.8 POC Glucose 121 H 109 H 10/01/16 10/01/16 15:56 11:55 INR PT Patient/Control Mix POC Glucose 94 156 H DS: Provider Date of admission: 09/29/16 19:20 Primary care physician: . No PCP Attending physician on admission: Zen Armijo DO Consults: 09/29/16 20:50 Consult to Occupational Therapy [CONS] Routine Reason for Occupational Therapy: Evaluate and Treat Consult to Physical Therapy [CONS] Routine Reason for Physical Therapy: Weakness Consult to Physician [CONS] Routine Comment: incontinence Consulting Provider: Wong Guerrero Person Notified: AWARE Date Notified: 09/30/16 Time Notified: 09:17 Consult to Physician [CONS] Routine Comment: memory loss and weakness Consulting Provider: Luis Jordan Person Notified: RYDER Date Notified: 09/30/16 Time Notified: 10:12 Consult Notification Comment: 09/29/16 21:14 Consult to Pastoral Services [CONS] Routine Comment: Pastoral Screen: Request End Matcher Visit 09/30/16 14:10 Consult to Case Mgmt/Social Srvs [CONS] Routine Reason for Case Mgmt/Social Srvs: Rehab Discharging clinician: Beronica Villafuerte MD
== END 2016-10-02 11:35 | DRG 699 ==
LOC: N.ED 14:55 → SUATTDRO 19:20 → N.EDINP 19:20 → N.5E 20:51
PROVIDERS: ADMIT Internal Medicine; ATTEND Internal Medicine

== ENCOUNTER 2018-05-11 07:46 | Inpatient (IN) ==
[2018-05-11] MEDS ORDERED: SODIUM CHLORIDE 0.9% 1,000 ML IV STA (07:54)
[2018-05-11] MEDS ORDERED: ONDANSETRON 4 MG/2 ML VIAL IV STA (07:54)
[2018-05-11] MEDS ORDERED: fentaNYL 100 MCG/2 ML VIAL IV STA (07:55)
[2018-05-11 08:48] LABS: Basophils # 0.1 10*3/uL (0.0-0.2); Basophils % 0.3 % (0.0-0.8); Hematocrit 36.3 VOL% (35.7-47.0); Hemoglobin 11.4 GM/DL (12.0-16.0); Immature Granulocytes % 0.5 %; Immature Granulocytes Absolute 0.08 #; Lymphocytes # 0.6 10*3/uL (1.4-4.0); Lymphocytes % 3.2 % (21.3-54.2); Mean Corpuscular HGB Conc 31.4 GM/DL (32-36); Mean Corpuscular Hemoglobin 33 PG (27-34); Mean Corpuscular Volume 105.5 FL (87-102); Mean Platelet Volume 11.3 FL (9.6-12.0); Monocytes # 0.7 10*3/uL (0.11-0.8); Monocytes % 4.2 % (1.7-12.7); Neutrophils # 16.1 10*3/uL (1.4-7.4); Neutrophils % 91.8 % (38.7-73.9); Platelet Count 208 T/CUMM (130-400); Red Blood Count 3.44 MC/CUMM (3.8-5.5); Red Cell Distribution Width 15.5 % (9.3-17.3); White Blood Count 17.5 T/CUMM (4-12)
[2018-05-11 08:58] LABS: Partial Thromboplastin Time 33.8 SECS (0-40)
[2018-05-11 09:09] LABS: PT Patient Result 21.2 SECS
[2018-05-11 09:15] LABS: Band Neutrophils 1 % (0-10); Hypochromasia 1+; Lymphocytes 3 % (20-55); Ovalocytes Slight; Platelet Estimate Adequate; Segmented Neutrophils 93 % (50-85); Total Cells Counted 100
[2018-05-11 09:17] LABS: Albumin 3.5 G/DL (3.4-5.0); Bilirubin,Total 0.7 MG/DL (0.2-1.0); Calcium 9.7 MG/DL (8.5-10.1); Osmolality,Calculated 284.2 MOS/KG (273-304); Potassium 4.6 MMOL/L (3.5-5.1); Total Protein 7.2 G/DL (6.4-8.3)
[2018-05-11] MEDS ORDERED: DILTIAZEM 50 MG/10 ML VIAL IV STA (09:17)
[2018-05-11] MEDS ORDERED: DILTIAZEM CD 120 MG CAPSULE PO STA (09:17)
[2018-05-11] MEDS ORDERED: DEXTROSE 50% 25 GM/50 ML VIAL IV PRN (11:01)
[2018-05-11] MEDS ORDERED: GLUCAGON 1 MG VIAL IM PRN (11:01)
[2018-05-11] MEDS ORDERED: MORPHINE 4 MG/1 ML VIAL IV PRN (11:01)
[2018-05-11] MEDS ORDERED: MAGNESIUM HYDROXIDE SUSP 30 ML UDCUP PO PRN (11:05)
[2018-05-11] MEDS ORDERED: DICLOFENAC 1% GEL 100 GM TUBE TOP PRN (11:05)
[2018-05-11] MEDS ORDERED: PRAMOXINE 1% RECTAL FOAM 15 GM CAN TOP PRN (11:05)
[2018-05-11] MEDS ORDERED: SODIUM CHLORIDE 0.9% 1,000 ML IV SCH (11:30)
[2018-05-11] MEDS: ACETAMINOPHEN 325 MG TABLET PO PRN (12:55)
[2018-05-11] MEDS: cefTRIAXone 1,000 MG in SYRINGE 1 EACH IV SCH (12:56)
[2018-05-11] MEDS: INSULIN REGULAR 100 UNIT/ML SUBCUT SCH ×3 (13:14→22:08)
[2018-05-11] MEDS: VANCOMYCIN INJ 1,000 MG in SODIUM CHLORIDE 0.9% 250 ML IV SCH (18:25)
[2018-05-11 19:43] LABS: Apearance,Urine Slightly Hazy (Clear); Bilirubin,Urine Negative (Negative); Blood, Urine Small mg/dL (Negative); Glucose,Urine (UA) 50 mg/dL (Negative); Ketones,Urine Negative (Negative); Nitrite,Urine Negative (Negative); Protein,Urine 30 MG/DL; Urine Color Yellow (Yellow); Urine Specific Gravity 1.015 (1.001-1.035); Urine Urobilinogen < 2.0 EU/DL (0.2-1.0)
[2018-05-11] MEDS ORDERED: CALCIUM HMB PO SCH (21:00)
[2018-05-11] MEDS ORDERED: GLUTAMINE PO SCH (21:00)
[2018-05-11] MEDS ORDERED: ARGININE PO SCH (21:00)
[2018-05-11] MEDS ORDERED: SODIUM CHLORIDE 0.9% 500 ML IV ONE (21:53)
[2018-05-11] MEDS: ALLOPURINOL 100 MG TABLET PO SCH (21:57)
[2018-05-11] MEDS: FERROUS SULFATE 325 MG TABLET PO SCH (21:57)
[2018-05-11] MEDS: busPIRone 5 MG TABLET PO SCH (21:57)
[2018-05-11 21:58] LABS: RBC,Urine 0-3 /HPF (0-4); WBC,Urine 0-5 /HPF (0-6)
[2018-05-11 21:59] LABS: Bacteria,Urine Few /HPF (Few); Hyaline Casts,Urine Rare /LPF (0-3); Mucus,Urine Moderate /LPF (Occasional)
[2018-05-11] MEDS: LUBIPROSTONE 8 MCG CAPSULE PO SCH (22:09)
[2018-05-11] MEDS: SODIUM CHLORIDE 0.9% 1,000 ML IV SCH (22:30)
[2018-05-12] MEDS ORDERED: SODIUM CHLORIDE 0.9% 1,000 ML IV SCH ×2 (00:01→22:11)
[2018-05-12] MEDS: MORPHINE 4 MG/1 ML VIAL IV PRN ×2 (03:14→22:04)
[2018-05-12] MEDS: SODIUM CHLORIDE 0.9% 1,000 ML IV SCH ×3 (05:10→22:05)
[2018-05-12 05:21] LABS: Basophils % 0.3 % (0.0-0.8); Eosinophils % 0.1 % (0.00-10.9); Hematocrit 28.5 VOL% (35.7-47.0); Hemoglobin 8.8 GM/DL (12.0-16.0); INR 1.6; Immature Granulocytes % 0.9 %; Immature Granulocytes Absolute 0.09 #; Lymphocytes # 0.9 10*3/uL (1.4-4.0); Lymphocytes % 8.5 % (21.3-54.2); Mean Corpuscular HGB Conc 30.9 GM/DL (32-36); Mean Corpuscular Hemoglobin 33 PG (27-34); Mean Corpuscular Volume 105.9 FL (87-102); Mean Platelet Volume 11.7 FL (9.6-12.0); Monocytes # 0.8 10*3/uL (0.11-0.8); Neutrophils # 8.5 10*3/uL (1.4-7.4); Neutrophils % 82.2 % (38.7-73.9); PT Patient Result 17.5 SECS; Platelet Count 170 T/CUMM (130-400); Red Blood Count 2.69 MC/CUMM (3.8-5.5); Red Cell Distribution Width 15.9 % (9.3-17.3); White Blood Count 10.4 T/CUMM (4-12)
[2018-05-12 05:34] LABS: Calcium 8.4 MG/DL (8.5-10.1); Osmolality,Calculated 284.8 MOS/KG (273-304); Potassium 4.5 MMOL/L (3.5-5.1)
[2018-05-12] MEDS ORDERED: ceFAZolin 1,000 MG in SYRINGE 1 EACH IV ONE (06:00)
[2018-05-12 07:09] LABS: Hypochromasia 1+; Lymphocytes 5 % (20-55); Macrocytosis Slight; Nucleated Red Blood Cells 2 (0-5); Segmented Neutrophils 88 % (50-85); Total Cells Counted 100
[2018-05-12 07:10] LABS: Platelet Estimate Adequate
[2018-05-12] MEDS ORDERED: ERGOCALCIFEROL 50,000 UNIT CAPSULE PO SCH (09:00)
[2018-05-12] MEDS ORDERED: ROPIVACAINE 0.5% 30 ML VIAL ONE (10:18)
[2018-05-12] MEDS ORDERED: LIDOCAINE 1% 5 ML VIAL ONE (10:19)
[2018-05-12] MEDS: POLYETHYLENE GLYCOL POWDER 17 GM PACK PO SCH (10:31)
[2018-05-12] MEDS: predniSONE 5 MG TABLET PO SCH (10:31)
[2018-05-12] MEDS: ALLOPURINOL 100 MG TABLET PO SCH ×2 (10:31→21:48)
[2018-05-12] MEDS: LISINOPRIL 20 MG TABLET PO SCH (10:31)
[2018-05-12] MEDS ORDERED: BACITRACIN OINT 0.9 GM PACK TOP ONE (10:42)
[2018-05-12] MEDS ORDERED: ONDANSETRON 4 MG/2 ML VIAL ONE (13:19)
[2018-05-12] MEDS ORDERED: KETAMINE 500 MG/10 ML VIAL ONE (13:20)
[2018-05-12] MEDS: ONDANSETRON 4 MG/2 ML VIAL IV PRN ×2 (13:21→22:00)
[2018-05-12] MEDS ORDERED: SEVOFLURANE 1 UNIT/15 MINUTE INH ONE (13:21)
[2018-05-12] MEDS ORDERED: ACETAMINOPHEN 1,000 MG/100 ML VIAL IV ONE (13:21)
[2018-05-12] MEDS ORDERED: ETOMIDATE 40 MG/20 ML VIAL IV ONE (13:21)
[2018-05-12] MEDS ORDERED: PHENYLEPHRINE 1 MG/10 ML SYRINGE IV ONE (13:21)
[2018-05-12] MEDS ORDERED: ROCURONIUM 100 MG/10 ML VIAL IV ONE (13:21)
[2018-05-12] MEDS ORDERED: MORPHINE 10 MG/1 ML VIAL ONE (13:42)
[2018-05-12] MEDS ORDERED: MORPHINE 4 MG/1 ML VIAL IV ONE (13:47)
[2018-05-12] MEDS: INSULIN REGULAR 100 UNIT/ML SUBCUT SCH ×3 (14:57→22:06)
[2018-05-12] MEDS: busPIRone 5 MG TABLET PO SCH ×2 (14:57→21:48)
[2018-05-12] MEDS: LUBIPROSTONE 8 MCG CAPSULE PO SCH ×2 (14:57→21:48)
[2018-05-12] MEDS: DILTIAZEM CD 120 MG CAPSULE PO SCH (14:57)
[2018-05-12] MEDS: FERROUS SULFATE 325 MG TABLET PO SCH ×2 (14:58→21:49)
[2018-05-12] MEDS: CALCIUM (CITRATE) 200 MG TABLET PO SCH ×2 (14:58→21:48)
[2018-05-12] MEDS: ESCITALOPRAM 10 MG TABLET PO SCH (14:59)
[2018-05-12] MEDS: FOLIC ACID 1 MG TABLET PO SCH (14:59)
[2018-05-12] MEDS: cefTRIAXone 1,000 MG in SYRINGE 1 EACH IV SCH (14:59)
[2018-05-12] MEDS: glipiZIDE 10 MG TABLET PO SCH (14:59)
[2018-05-12] MEDS ORDERED: WARFARIN 5 MG TABLET PO SCH (18:00)
[2018-05-12] MEDS: VANCOMYCIN INJ 1,000 MG in SODIUM CHLORIDE 0.9% 250 ML IV SCH (18:41)
[2018-05-12] MEDS ORDERED: dilTIAZem Drip 125 MG/125 ML PREMIX IV SCH (19:00)
[2018-05-12] MEDS ORDERED: DILTIAZEM CD 120 MG CAPSULE PO ONE (20:21)
[2018-05-12] MEDS: DOCUSATE SODIUM 100 MG CAPSULE PO SCH (21:51)
[2018-05-13 05:58] LABS: Calcium 8.3 MG/DL (8.5-10.1); Osmolality,Calculated 285.8 MOS/KG (273-304); Potassium 4.7 MMOL/L (3.5-5.1)
[2018-05-13] MEDS: ONDANSETRON 4 MG/2 ML VIAL IV PRN (06:09)
[2018-05-13] MEDS: MORPHINE 4 MG/1 ML VIAL IV PRN ×2 (06:11→11:54)
[2018-05-13] MEDS: SODIUM CHLORIDE 0.9% 1,000 ML IV SCH (06:23)
[2018-05-13 07:31] LABS: Basophils % 0.3 % (0.0-0.8); Eosinophils # 0.1 10*3/uL (0.0-0.87); Eosinophils % 0.8 % (0.00-10.9); Hematocrit 22.4 VOL% (35.7-47.0); Immature Granulocytes % 0.7 %; Immature Granulocytes Absolute 0.07 #; Lymphocytes # 1.1 10*3/uL (1.4-4.0); Lymphocytes % 10.3 % (21.3-54.2); Mean Corpuscular HGB Conc 30.8 GM/DL (32-36); Mean Corpuscular Hemoglobin 33 PG (27-34); Mean Corpuscular Volume 106.7 FL (87-102); Mean Platelet Volume 12.1 FL (9.6-12.0); Monocytes % 9.3 % (1.7-12.7); Neutrophils # 8.4 10*3/uL (1.4-7.4); Neutrophils % 78.6 % (38.7-73.9); Platelet Count 151 T/CUMM (130-400); Red Cell Distribution Width 15.5 % (9.3-17.3); White Blood Count 10.7 T/CUMM (4-12)
[2018-05-13 07:34] LABS: Hemoglobin 6.9 GM/DL (12.0-16.0)
[2018-05-13] MEDS: busPIRone 5 MG TABLET PO SCH ×2 (09:23→21:53)
[2018-05-13] MEDS: LUBIPROSTONE 8 MCG CAPSULE PO SCH ×2 (09:23→21:53)
[2018-05-13] MEDS: DILTIAZEM CD 120 MG CAPSULE PO SCH (09:23)
[2018-05-13] MEDS: ESCITALOPRAM 10 MG TABLET PO SCH (09:24)
[2018-05-13] MEDS: DOCUSATE SODIUM 100 MG CAPSULE PO SCH ×2 (09:24→21:53)
[2018-05-13] MEDS: FOLIC ACID 1 MG TABLET PO SCH (09:24)
[2018-05-13] MEDS: POLYETHYLENE GLYCOL POWDER 17 GM PACK PO SCH (09:24)
[2018-05-13] MEDS: FERROUS SULFATE 325 MG TABLET PO SCH ×2 (09:24→21:53)
[2018-05-13] MEDS: CALCIUM (CITRATE) 200 MG TABLET PO SCH ×2 (09:24→21:53)
[2018-05-13] MEDS: glipiZIDE 10 MG TABLET PO SCH (09:24)
[2018-05-13] MEDS: predniSONE 5 MG TABLET PO SCH (09:25)
[2018-05-13] MEDS: ALLOPURINOL 100 MG TABLET PO SCH ×2 (09:25→21:54)
[2018-05-13] MEDS: LISINOPRIL 20 MG TABLET PO SCH (09:25)
[2018-05-13] MEDS ORDERED: SODIUM CHLORIDE 0.9% 1,000 ML IV PRN (10:27)
[2018-05-13] MEDS: INSULIN REGULAR 100 UNIT/ML SUBCUT SCH ×4 (11:42→21:53)
[2018-05-13] MEDS: cefTRIAXone 1,000 MG in SYRINGE 1 EACH IV SCH (11:53)
[2018-05-13] MEDS: VANCOMYCIN INJ 1,000 MG in SODIUM CHLORIDE 0.9% 250 ML IV SCH (16:59)
[2018-05-13] MEDS ORDERED: WARFARIN 2.5 MG TABLET PO SCH (18:00)
[2018-05-13] MEDS ORDERED: LORazepam 2 MG/1 ML VIAL IV ONE ×2 (20:11→22:58)
[2018-05-14 03:57] LABS: Basophils % 0.2 % (0.0-0.8); Eosinophils # 0.1 10*3/uL (0.0-0.87); Eosinophils % 0.5 % (0.00-10.9); Hematocrit 24.9 VOL% (35.7-47.0); Immature Granulocytes % 0.9 %; Lymphocytes # 0.8 10*3/uL (1.4-4.0); Lymphocytes % 7.8 % (21.3-54.2); Mean Corpuscular HGB Conc 32.1 GM/DL (32-36); Mean Corpuscular Hemoglobin 32 PG (27-34); Mean Corpuscular Volume 98.8 FL (87-102); Mean Platelet Volume 11.4 FL (9.6-12.0); Monocytes # 1.1 10*3/uL (0.11-0.8); Neutrophils # 8.6 10*3/uL (1.4-7.4); Neutrophils % 80.6 % (38.7-73.9); Platelet Count 149 T/CUMM (130-400); Red Blood Count 2.52 MC/CUMM (3.8-5.5); Red Cell Distribution Width 18.8 % (9.3-17.3); White Blood Count 10.7 T/CUMM (4-12)
[2018-05-14 04:10] LABS: INR 1.9; PT Patient Result 20.7 SECS
[2018-05-14 04:17] LABS: Calcium 8.8 MG/DL (8.5-10.1); Potassium 4.5 MMOL/L (3.5-5.1)
[2018-05-14] MEDS ORDERED: SODIUM CHLORIDE 0.9% 1,000 ML IV PRN (08:04)
[2018-05-14] MEDS ORDERED: fentaNYL 25 MCG/HR PATCH TRANSDERM SCH (09:00)
[2018-05-14] MEDS: INSULIN REGULAR 100 UNIT/ML SUBCUT SCH ×4 (11:47→22:10)
[2018-05-14] MEDS: LUBIPROSTONE 8 MCG CAPSULE PO SCH ×2 (11:48→22:10)
[2018-05-14] MEDS: busPIRone 5 MG TABLET PO SCH ×2 (11:48→22:10)
[2018-05-14] MEDS: CALCIUM (CITRATE) 200 MG TABLET PO SCH ×2 (11:49→22:15)
[2018-05-14] MEDS: DILTIAZEM CD 120 MG CAPSULE PO SCH (11:49)
[2018-05-14] MEDS: FOLIC ACID 1 MG TABLET PO SCH (11:50)
[2018-05-14] MEDS: glipiZIDE 10 MG TABLET PO SCH (11:50)
[2018-05-14] MEDS: FERROUS SULFATE 325 MG TABLET PO SCH ×2 (11:50→22:10)
[2018-05-14] MEDS: ESCITALOPRAM 10 MG TABLET PO SCH (11:50)
[2018-05-14] MEDS: DOCUSATE SODIUM 100 MG CAPSULE PO SCH ×2 (11:58→22:09)
[2018-05-14] MEDS: LISINOPRIL 20 MG TABLET PO SCH (11:59)
[2018-05-14] MEDS: predniSONE 5 MG TABLET PO SCH (11:59)
[2018-05-14] MEDS: POLYETHYLENE GLYCOL POWDER 17 GM PACK PO SCH (11:59)
[2018-05-14] MEDS: ALLOPURINOL 100 MG TABLET PO SCH ×2 (12:00→22:10)
[2018-05-14] MEDS: cefTRIAXone 1,000 MG in SYRINGE 1 EACH IV SCH (12:08)
[2018-05-14] MEDS: ACETAMINOPHEN 325 MG TABLET PO PRN (14:55)
[2018-05-14] MEDS: VANCOMYCIN INJ 1,000 MG in SODIUM CHLORIDE 0.9% 250 ML IV SCH (17:54)
[2018-05-14] MEDS ORDERED: VANCOMYCIN INJ 1,000 MG in SODIUM CHLORIDE 0.9% 250 ML IV SCH (18:00)
[2018-05-14 19:35] LABS: Hematocrit 26.7 VOL% (35.7-47.0); Hemoglobin 8.7 GM/DL (12.0-16.0)
[2018-05-14] MEDS: ONDANSETRON 4 MG/2 ML VIAL IV PRN (22:16)
[2018-05-14] MEDS: MORPHINE 4 MG/1 ML VIAL IV PRN (22:18)
[2018-05-15] MEDS: ONDANSETRON 4 MG/2 ML VIAL IV PRN (01:58)
[2018-05-15] MEDS: MORPHINE 4 MG/1 ML VIAL IV PRN ×2 (02:00→07:30)
[2018-05-15 03:16] LABS: Basophils % 0.1 % (0.0-0.8); Eosinophils # 0.1 10*3/uL (0.0-0.87); Eosinophils % 0.7 % (0.00-10.9); Hematocrit 26.8 VOL% (35.7-47.0); Hemoglobin 8.8 GM/DL (12.0-16.0); Immature Granulocytes % 0.9 %; Immature Granulocytes Absolute 0.12 #; Lymphocytes % 7.2 % (21.3-54.2); Mean Corpuscular HGB Conc 32.8 GM/DL (32-36); Mean Corpuscular Hemoglobin 31 PG (27-34); Mean Platelet Volume 11.2 FL (9.6-12.0); Monocytes % 7.8 % (1.7-12.7); Neutrophils # 11.1 10*3/uL (1.4-7.4); Neutrophils % 83.3 % (38.7-73.9); Platelet Count 171 T/CUMM (130-400); Red Blood Count 2.85 MC/CUMM (3.8-5.5); Red Cell Distribution Width 19.8 % (9.3-17.3); White Blood Count 13.3 T/CUMM (4-12)
[2018-05-15 03:49] LABS: INR 1.7; PT Patient Result 18.1 SECS
[2018-05-15] MEDS: INSULIN REGULAR 100 UNIT/ML SUBCUT SCH ×4 (07:41→21:30)
[2018-05-15] MEDS: LISINOPRIL 20 MG TABLET PO SCH (10:48)
[2018-05-15] MEDS: glipiZIDE 10 MG TABLET PO SCH (10:49)
[2018-05-15] MEDS: ALLOPURINOL 100 MG TABLET PO SCH ×2 (10:49→21:30)
[2018-05-15] MEDS: CALCIUM (CITRATE) 200 MG TABLET PO SCH ×2 (10:49→21:22)
[2018-05-15] MEDS: busPIRone 5 MG TABLET PO SCH ×2 (10:49→21:22)
[2018-05-15] MEDS: predniSONE 5 MG TABLET PO SCH (10:49)
[2018-05-15] MEDS: ESCITALOPRAM 10 MG TABLET PO SCH (10:49)
[2018-05-15] MEDS: FOLIC ACID 1 MG TABLET PO SCH (10:49)
[2018-05-15] MEDS: LUBIPROSTONE 8 MCG CAPSULE PO SCH ×2 (10:49→21:23)
[2018-05-15] MEDS: FERROUS SULFATE 325 MG TABLET PO SCH ×2 (10:50→21:22)
[2018-05-15] MEDS: DILTIAZEM CD 120 MG CAPSULE PO SCH ×2 (10:50→21:23)
[2018-05-15] MEDS: POLYETHYLENE GLYCOL POWDER 17 GM PACK PO SCH (10:50)
[2018-05-15] MEDS: DOCUSATE SODIUM 100 MG CAPSULE PO SCH ×2 (10:50→21:29)
[2018-05-15] MEDS: cefTRIAXone 1,000 MG in SYRINGE 1 EACH IV SCH (10:51)
[2018-05-15] MEDS ORDERED: WARFARIN 4 MG TABLET PO SCH (18:00)
[2018-05-16 05:10] LABS: Basophils % 0.3 % (0.0-0.8); Eosinophils # 0.3 10*3/uL (0.0-0.87); Eosinophils % 2.2 % (0.00-10.9); Hematocrit 27.9 VOL% (35.7-47.0); Hemoglobin 8.9 GM/DL (12.0-16.0); Immature Granulocytes % 1.2 %; Immature Granulocytes Absolute 0.14 #; Lymphocytes # 1.6 10*3/uL (1.4-4.0); Lymphocytes % 13.1 % (21.3-54.2); Mean Corpuscular HGB Conc 31.9 GM/DL (32-36); Mean Corpuscular Hemoglobin 31 PG (27-34); Mean Corpuscular Volume 95.5 FL (87-102); Mean Platelet Volume 11.6 FL (9.6-12.0); Monocytes # 0.9 10*3/uL (0.11-0.8); Monocytes % 7.3 % (1.7-12.7); Neutrophils # 9.2 10*3/uL (1.4-7.4); Neutrophils % 75.9 % (38.7-73.9); Platelet Count 228 T/CUMM (130-400); Red Blood Count 2.92 MC/CUMM (3.8-5.5); Red Cell Distribution Width 18.9 % (9.3-17.3); White Blood Count 12.1 T/CUMM (4-12)
[2018-05-16 05:15] LABS: INR 1.2; PT Patient Result 13.3 SECS
[2018-05-16 05:29] LABS: Calcium 9.9 MG/DL (8.5-10.1); Potassium 3.8 MMOL/L (3.5-5.1)
[2018-05-16] MEDS: INSULIN REGULAR 100 UNIT/ML SUBCUT SCH ×2 (07:30→12:19)
[2018-05-16] MEDS: FERROUS SULFATE 325 MG TABLET PO SCH (09:31)
[2018-05-16] MEDS: busPIRone 5 MG TABLET PO SCH (09:33)
[2018-05-16] MEDS: CALCIUM (CITRATE) 200 MG TABLET PO SCH (09:33)
[2018-05-16] MEDS: FOLIC ACID 1 MG TABLET PO SCH (09:34)
[2018-05-16] MEDS: LISINOPRIL 20 MG TABLET PO SCH (09:34)
[2018-05-16] MEDS: predniSONE 5 MG TABLET PO SCH (09:34)
[2018-05-16] MEDS: DILTIAZEM CD 120 MG CAPSULE PO SCH (09:34)
[2018-05-16] MEDS: ESCITALOPRAM 10 MG TABLET PO SCH (09:34)
[2018-05-16] MEDS: LUBIPROSTONE 8 MCG CAPSULE PO SCH (09:34)
[2018-05-16] MEDS: glipiZIDE 10 MG TABLET PO SCH (09:34)
[2018-05-16] MEDS: ALLOPURINOL 100 MG TABLET PO SCH (09:34)
[2018-05-16] MEDS: POLYETHYLENE GLYCOL POWDER 17 GM PACK PO SCH (09:35)
[2018-05-16] MEDS: DOCUSATE SODIUM 100 MG CAPSULE PO SCH (09:35)
[2018-05-16] MEDS: cefTRIAXone 1,000 MG in SYRINGE 1 EACH IV SCH (12:19)
[2018-05-16 13:00] VITALS: BP 131/66
[2018-06-05] MEDS ORDERED: CYANOCOBALAMIN 1000 MCG/1 ML VIAL IM SCH (09:00)
== END 2018-05-16 14:03 | DRG 481 ==
LOC: EDBD → EDUNIT# → N.ED 07:46 → N.EDINP 11:01 → SUATTDRO 11:01 → N.TELES 12:25 → N.3E 05-12 14:20 → N.TELES 05-12 19:44
PROVIDERS: ADMIT Internal Medicine; ATTEND Internal Medicine Cardiovascular Disease